=== PATIENT | female | born 1985 | race Caucasian/White ===

== ENCOUNTER 2021-03-14 16:53 | Inpatient (IN) | payer OTHER ==
[~2021-03-14] VITALS: Ht 162.6 cm; Wt 79.8 kg
[2021-03-14] MEDS ORDERED: SUBUTEX 8 MG TAB8 MG SL (18:01)
[2021-03-14] MEDS ORDERED: PRENATAL TABLE1 EAC1 PO (18:02)
[2021-03-14 19:59] LABS: HEMOGLOBIN 13.4 gm/dl (12.3-15.3); RED BLOOD COUNT 4.62 M/UL (4.00-5.10); WHITE BLOOD COUNT 14.7 K/UL (4.5-11.0)
[2021-03-15] MEDS ORDERED: COLACE100 MG PO (15:07)
[2021-03-15] MEDS ORDERED: HEMOCYTE324 MG PO (15:07)
[2021-03-15] MEDS ORDERED: IBUPROFEN800 MG PO (15:07)
[2021-03-16 09:28] LABS: HEMOGLOBIN 9.2 gm/dl (12.3-15.3)
== END 2021-03-16 14:14 | disposition home or self-care (01) | DRG 788 ==
LOC: GENOP 16:53 → OB 17:20
PROVIDERS: Obstetrics & Gynecology; ADMIT Obstetrics & Gynecology
PROC: 4A1HXCZ Monitoring of Products of Conception, Cardiac Rate, External Approach (ICD-10-PCS; 2021-03-14)
PROC: 10D00Z1 Extraction of Products of Conception, Low, Open Approach (ICD-10-PCS; principal; 2021-03-15 13:47)
DX: O76 Abnormality in fetal heart rate and rhythm complicating labor and delivery (principal); Z3A.39 39 weeks gestation of pregnancy; Z20.822 Contact with and (suspected) exposure to COVID-19; Z37.0 Single live birth; O69.0XX0 Labor and delivery complicated by prolapse of cord, not applicable or unspecified; O69.81X0 Labor and delivery complicated by cord around neck, without compression, not applicable or unspecified; Z90.49 Acquired absence of other specified parts of digestive tract
CPT/HCPCS: 80307; 81001; 82800; 85014; 85018; 85025; 90686; 90715; C9113; J0171; J0690; J1200; J1885; J2274; J2360; J2370; J2405; J2590; J2795; J3105; J7120; Q0177